=== PATIENT | female | born 1995 | race Caucasian/White ===

== ENCOUNTER 2023-01-24 09:06 | Inpatient (IN) | payer OTHER ==
[~2023-01-24] VITALS: Ht 167.6 cm; Wt 93.0 kg
--- NOTE | 2023-01-24 09:20 | NUR ---
PATIENT HAS BEEN SCREENED AND CATEGORIZED LOW NUTRITION RISK. PATIENT WILL BE SEEN WITHIN 7 DAYS OF ADMISSION. 01/31/23 REVIEWED BY [address]OND [address]
[2023-01-24] MEDS ORDERED: PNV91TAB8 PO (09:21)
[2023-01-24] MEDS ORDERED: ceFAZolin Sod. 2,000 MG in DEXTROSE 5% 100 ML IV ONE (09:25)
[2023-01-24 09:51] LABS: BASOPHILS % (AUTO) 0.3 % (0.0-2.0); EOSINOPHILS % (AUTO) 0.3 % (0.0-4.0); HEMATOCRIT 29.5 % (36-48); HEMOGLOBIN 9.7 g/dL (12.0-16.0); LYMPHOCYTES # (AUTO) 2.3 K/uL (2.5-16.5); LYMPHOCYTES % (AUTO) 21.6 % (20.5-51.1); MEAN CORPUSCULAR HEMOGLOBIN 25 pg (27-31); MEAN CORPUSCULAR HGB CONC 33 g/dL (33-37); MEAN CORPUSCULAR VOLUME 77.1 fL (80-94); MONOCYTES # (AUTO) 0.7 K/uL (0.8-1.0); MONOCYTES % (AUTO) 6.2 % (1.7-9.3); NEUTROPHILS # (AUTO) 7.6 K/uL (1.8-7.7); NEUTROPHILS % (AUTO) 71.6 % (42.2-75.2); PLATELET COUNT (AUTO) 208 K/uL (140-450); RED BLOOD CELL COUNT(AUTO) 3.83 MIL/uL (4.20-5.40); RED CELL DISTRIBUTION WIDTH 16.7 % (11.6-13.7); WHITE BLOOD COUNT (AUTO) 10.6 K/uL (4.8-10.8)
[2023-01-24] MEDS: LACTATED RINGERS 1,000 ML IV SCH ×2 (09:54→12:00)
[2023-01-24 10:09] LABS: APPEARANCE,URINE CLEAR (CLEAR); BILIRUBIN,URINE NEGATIVE (NEGATIVE); BLOOD, URINE NEGATIVE (NEGATIVE); COLOR,URINE YELLOW (YELLOW); LEUKOCYTE ESTERASE ,URINE NEGATIVE (NEGATIVE); NITRITE, URINE NEGATIVE (NEGATIVE); PH,URINE 7.5 (5.0-9.0); UGLUCOSE NEGATIVE (NEGATIVE)
[2023-01-24 10:54] LABS: ALBUMIN 2.6 g/dL (3.4-5.0); ANION GAP 13.6 (8-16); CARBON DIOXIDE 24.5 mmol/L (21-32); CREATININE 0.5 mg/dL (0.6-1.3); POTASSIUM 4.1 mmol/L (3.5-5.1); TOTAL BILIRUBIN 0.3 mg/dL (0.0-1.0)
[2023-01-24] MEDS ORDERED: ceFAZolin 2,000 MG VIAL ONE ×2 (11:33→12:00)
[2023-01-24] MEDS ORDERED: ONDANSETRON 4 MG/2 ML VIAL ONE (12:00)
[2023-01-24] MEDS ORDERED: KETOROLAC 30 MG/ML VIAL ONE (12:00)
[2023-01-24 12:19] LABS: PROTHROMBIN TIME 9.8 secs (10.8-13.4)
[2023-01-24] MEDS ORDERED: MORPHINE PRES FREE 10 MG/10 ML AMP IV ONE (12:23)
[2023-01-24] MEDS ORDERED: METHYLERGONOVINE 0.2 MG/ML AMP IM PRN (12:35)
[2023-01-24] MEDS ORDERED: KETOROLAC 30 MG/ML VIAL IVP PRN (12:35)
[2023-01-24] MEDS ORDERED: TEMAZEPAM 15 MG CAP PO PRN (12:35)
[2023-01-24] MEDS ORDERED: OXYTOCIN 20 UNITS/LR PREMIX 1,000 ML IV ONE ×2 (12:45→15:28)
[2023-01-24] MEDS ORDERED: NALOXONE 0.4 MG/ML VIAL IVP PRN ×3 (13:05)
[2023-01-24] MEDS ORDERED: ONDANSETRON 4 MG/2 ML VIAL IVP PRN (13:05)
[2023-01-24] MEDS ORDERED: NALBUPHINE 10 MG/ML AMP IVP PRN (13:05)
[2023-01-24] MEDS ORDERED: METOCLOPRAMIDE 10 MG/2 ML INJ VIAL IVP PRN (13:06)
[2023-01-24] MEDS: diphenhydrAMINE 50 MG/ML VIAL IVP PRN ×3 (13:30→23:28)
[2023-01-24] MEDS: KETOROLAC 30 MG/ML VIAL IM/IVP SCH ×2 (14:50→21:05)
[2023-01-24] MEDS: OXYTOCIN 20 UNITS in LACTATED RINGERS 1,000 ML IV SCH (16:14)
[2023-01-24] MEDS: DOCUSATE SOD/SENNA 50/8.6 MG 1 TAB PO SCH (21:00)
[2023-01-25] MEDS ORDERED: OXYTOCIN 20 UNITS/LR PREMIX 1,000 ML IV ONE ×2 (00:07→07:29)
[2023-01-25] MEDS: OXYTOCIN 20 UNITS in LACTATED RINGERS 1,000 ML IV SCH ×2 (00:25→08:05)
[2023-01-25] MEDS: KETOROLAC 30 MG/ML VIAL IM/IVP SCH (06:00)
[2023-01-25 08:19] LABS: BASOPHILS % (AUTO) 0.2 % (0.0-2.0); EOSINOPHILS % (AUTO) 0.2 % (0.0-4.0); HEMATOCRIT 26.7 % (36-48); HEMOGLOBIN 8.7 g/dL (12.0-16.0); LYMPHOCYTES # (AUTO) 1.5 K/uL (2.5-16.5); MEAN CORPUSCULAR HEMOGLOBIN 25 pg (27-31); MEAN CORPUSCULAR HGB CONC 33 g/dL (33-37); MEAN CORPUSCULAR VOLUME 77.1 fL (80-94); MONOCYTES # (AUTO) 1.2 K/uL (0.8-1.0); MONOCYTES % (AUTO) 7.8 % (1.7-9.3); NEUTROPHILS # (AUTO) 12.5 K/uL (1.8-7.7); NEUTROPHILS % (AUTO) 81.8 % (42.2-75.2); PLATELET COUNT (AUTO) 189 K/uL (140-450); RED BLOOD CELL COUNT(AUTO) 3.46 MIL/uL (4.20-5.40); RED CELL DISTRIBUTION WIDTH 16.6 % (11.6-13.7); WHITE BLOOD COUNT (AUTO) 15.3 K/uL (4.8-10.8)
[2023-01-25] MEDS: oxyCODONE/APAP 5/325 MG 1 TAB TAB PO PRN ×3 (09:55→18:56)
[2023-01-25] MEDS: SIMETHICONE 80 MG TAB.CHEW PO PRN (14:33)
[2023-01-25] MEDS: DOCUSATE SOD/SENNA 50/8.6 MG 1 TAB PO SCH (21:05)
[2023-01-26] MEDS: oxyCODONE/APAP 5/325 MG 1 TAB TAB PO PRN ×5 (00:53→21:58)
[2023-01-26] MEDS ORDERED: CAMERA MC ONE ×2 (02:39→19:30)
[2023-01-26] MEDS: IBUPROFEN 800 MG TAB PO PRN ×2 (10:05→19:57)
[2023-01-26] MEDS: DOCUSATE SOD/SENNA 50/8.6 MG 1 TAB PO SCH (21:58)
[2023-01-27] MEDS: oxyCODONE/APAP 5/325 MG 1 TAB TAB PO PRN ×4 (04:35→14:06)
[2023-01-27] MEDS: SIMETHICONE 80 MG TAB.CHEW PO PRN ×2 (08:28→14:05)
== END 2023-01-27 15:00 | disposition home or self-care (01) | DRG 540 ==
LOC: MLD 09:06 → OBSVTOIN 09:25 → MFCC 14:51
PROVIDERS: ADMIT Obstetrics & Gynecology; ATTEND Obstetrics & Gynecology
PROC: 10D00Z1 Extraction of Products of Conception, Low, Open Approach (ICD-10-PCS; principal; 2023-01-24 12:00)
DX: O32.1XX0 Maternal care for breech presentation, not applicable or unspecified (principal); R71.0 Precipitous drop in hematocrit; Z20.822 Contact with and (suspected) exposure to COVID-19; Z37.0 Single live birth; Z3A.38 38 weeks gestation of pregnancy
CPT/HCPCS: 36415; 80053; 81003; 85025; 85610; 85730; 86592; 86886; 86900; 86901; J1200; J1885; J2270; J2405; J2590